=== PATIENT | male | born 1970 | race Caucasian/White ===

== ENCOUNTER 2023-11-19 00:04 | Emergency (ER) | payer SELFPAY ==
[2023-11-19] MEDS ORDERED: atorvaSTATin 40 MG Tab PO ONE ×2 (00:29→00:36)
[2023-11-19] MEDS: LORazepam 2 MG/ML SDV IVPUSH ONE ×2 (00:32→01:16)
[2023-11-19] MEDS ORDERED: Naloxone 0.4 MG/ML SDV IVPUSH PRN (00:33)
[2023-11-19] MEDS ORDERED: Sodium Chloride 0.9% 10 ML Syringe FLUSH PRN (00:34)
[2023-11-19] MEDS ORDERED: Heparin Sodium 5,000 Units/ML Vial IVPUSH ONE (00:37)
[2023-11-19] MEDS: atorvaSTATin 40 MG Tab PO ONE (00:40)
[2023-11-19] MEDS: Metoprolol Tartrate 25 MG Tab PO ONE (00:40)
[2023-11-19 00:45] LABS: BASOPHILS PERCENT AUTO 0.3 % (0.2-1.2); EOSINOPHILS ABSOLUTE AUTO 0.4 x10^3/uL (0.0-0.5); EOSINOPHILS PERCENT AUTO 2.8 % (0.0-4.0); HEMOGLOBIN 14.7 g/dL (14.0-18.0); IMMATURE GRAN ABSOLUTE AUTO 0.03 x10^3/uL (0.00-0.07); LYMPHOCYTES ABSOLUTE AUTO 2.1 x10^3/uL (1.0-4.8); LYMPHOCYTES PERCENT AUTO 16.6 % (25.0-50.0); MEAN CORPUSCULAR HEMOGLOBIN 32.7 pg (26.0-32.0); MEAN CORPUSCULAR HGB CONC 36.8 g/dL (32.0-36.0); MEAN CORPUSCULAR VOLUME 88.9 fL (78.0-93.0); MONOCYTES PERCENT AUTO 7.8 % (2.0-11.0); NEUTROPHILS ABSOLUTE AUTO 9.2 x10^3/uL (1.8-7.7); NEUTROPHILS PERCENT AUTO 72.3 % (50.0-80.0); PLATELET COUNT,PLT 328 x10^3/uL (130-400); WHITE BLOOD CELL COUNT,WBC 12.7 x10^3/uL (4.0-10.0)
[2023-11-19] MEDS ORDERED: Heparin Sodium/0.45% NaCl 25,000 UNITS/500 ML BAG IV SCH (00:45)
[2023-11-19] MEDS: Nitroglycerin 2% Oint 1 GM UD Packet TOP ONE (00:45)
[2023-11-19] MEDS: Morphine 4 MG/ML Syringe IVPUSH ONE (00:46)
[2023-11-19] MEDS: Heparin Sodium 5,000 Units/ML Vial IVPUSH ONE (00:55)
[2023-11-19 01:01] LABS: PROTHROMBIN TIME 9.9 SEC (8.9-11.5)
[2023-11-19] MEDS: Morphine 4 MG/ML Syringe ONE (01:06)
[2023-11-19 01:13] LABS: A/G RATIO 1.41; ALANINE AMINOTRANSFERASE,ALT 41 U/L (16-63); ALBUMIN 4.1 g/dL (3.4-5.0); ALKALINE PHOSPHATASE 62 U/L (46-116); ANION GAP 15.1 mmol/L (5-15); ASPARTATE AMNIOTRANSFERASE,AST 26 U/L (15-37); BILIRUBIN TOTAL 0.7 mg/dL (0.2-1.0); BLOOD UREA NITROGEN,BUN 10 mg/dL (7-18); CALCIUM 9.9 mg/dL (8.5-10.1); CARBON DIOXIDE,CO2 27 mmol/L (21-32); CHLORIDE,CL 101 mmol/L (98-107); ESTIMATED GFR 91 mL/min (>=60); GLUCOSE RANDOM 314 mg/dL (70-99); MAGNESIUM 1.5 mg/dL (1.8-2.4); POTASSIUM,K 3.1 mmol/L (3.5-5.1); PRO B-TYPE NATRIUR PEPT,BNPPRO 1051 pg/mL (<=125); SODIUM,NA 140 mmol/L (136-145)
[2023-11-19] MEDS ORDERED: Morphine 4 MG/ML Syringe ONE (01:19)
[2023-11-19] MEDS: Nitroglycerin 2% Oint 1 GM UD Packet ONE (02:14)
== END 2023-11-19 01:24 ==
LOC: VM.ED 00:04
DX: I21.4 Non-ST elevation (NSTEMI) myocardial infarction (principal)
CPT/HCPCS: 36415; 71045; 80053; 83735; 83880; 84484; 85025; 85610; 93005; 93010; 96374; 96375; 96376; 99284; 99285-25; A9270-GY; J1644; J2060; J2270

== ENCOUNTER 2024-11-08 14:28 | Emergency (ER) | payer MEDICAID ==
[2024-11-08] MEDS ORDERED: Sodium Chloride 0.9% 10 ML Syringe FLUSH PRN (14:38)
[2024-11-08] MEDS: Nitroglycerin 0.4 MG Tab.SL SL ONE ×2 (14:50→15:20)
[2024-11-08 14:54] LABS: BASOPHILS ABSOLUTE AUTO 0.0 x10^3/uL (0.0-0.2); BASOPHILS PERCENT AUTO 0.2 % (0.2-1.2); EOSINOPHILS ABSOLUTE AUTO 0.4 x10^3/uL (0.0-0.5); EOSINOPHILS PERCENT AUTO 5.2 % (0.0-4.0); IMMATURE GRAN ABSOLUTE AUTO 0.01 x10^3/uL (0.00-0.07); IMMATURE GRAN PERCENT AUTO 0.10 % (0.00-0.43); LYMPHOCYTES ABSOLUTE AUTO 1.9 x10^3/uL (1.0-4.8); LYMPHOCYTES PERCENT AUTO 23.6 % (25.0-50.0); MONOCYTES ABSOLUTE AUTO 0.7 x10^3/uL (0.0-0.8); MONOCYTES PERCENT AUTO 8.1 % (2.0-11.0); NEUTROPHILS ABSOLUTE AUTO 5.1 x10^3/uL (1.8-7.7); NEUTROPHILS PERCENT AUTO 62.8 % (50.0-80.0); PLATELET COUNT,PLT 243 x10^3/uL (130-400); RED BLOOD CELL COUNT 4.29 x10^6/uL (4.5-6.0); WHITE BLOOD CELL COUNT,WBC 8.2 x10^3/uL (4.0-10.0)
[2024-11-08 15:14] LABS: A/G RATIO 1.46; ALANINE AMINOTRANSFERASE,ALT 26 U/L (16-63); ASPARTATE AMNIOTRANSFERASE,AST 16 U/L (15-37); BILIRUBIN TOTAL 0.7 mg/dL (0.2-1.0); BLOOD UREA NITROGEN,BUN 13 mg/dL (7-18); CARBON DIOXIDE,CO2 28 mmol/L (21-32); CHLORIDE,CL 104 mmol/L (98-107); CREATININE 1.4 mg/dL (0.70-1.30); GLUCOSE RANDOM 124 mg/dL (70-99); POTASSIUM,K 3.6 mmol/L (3.5-5.1); PRO B-TYPE NATRIUR PEPT,BNPPRO 376 pg/mL (<=125); PROTEIN TOTAL,TP 6.9 g/dL (6.4-8.2); SODIUM,NA 141 mmol/L (136-145)
[2024-11-08 15:16] LABS: ESTIMATED GFR 60 mL/min (>=60)
== END 2024-11-08 17:44 | disposition home or self-care (01) ==
LOC: VM.ED 14:28
DX: R07.2 Precordial pain (principal); I25.10 Atherosclerotic heart disease of native coronary artery without angina pectoris
CPT/HCPCS: 36415; 71045; 80053; 83735; 83880; 84484; 85025; 99285; A9270; 93010; 99284